=== PATIENT | female | born 1960 ===

== ENCOUNTER → 2016-05-02 | Outpatient (CLI) | payer BC | END | disposition home or self-care (01) | LOC: C.PATHSPEC 11:07 | PROVIDERS: ATTEND Dentist Oral and Maxillofacial Surgery | DX: C05.9 Malignant neoplasm of palate, unspecified (principal) ==

== ENCOUNTER 2025-02-01 06:21 | Observation (INO) ==
--- NOTE | 2025-01-07 15:22 | PAT Medication Instructions ---
Medication Instructions Date of Service January 07, 2025 Home Medications Lactobacillus acidophilus 10 billion cell capsule (Probiotic) 10,000 mmu cells PO DAILY acetaminophen 500 mg capsule 500 mg PO QID PRN Pain alprazolam 0.5 mg tablet (Xanax) 0.5 mg PO BID PRN Anxiety cholecalciferol (vitamin D3) 125 mcg (5,000 unit) tablet (Vitamin D3) 125 mcg PO WK citalopram 40 mg tablet (Celexa) 20 mg PO QAM meclizine 25 mg tablet 25 mg PO DAILY PRN Dizziness nebivolol 20 mg tablet 20 mg PO QAM tirzepatide (weight loss) 15 mg/0.5 mL subcutaneous pen injector 15 mg subcut WK DO NOT take the morning of surgery Lactobacillus acidophilus 10 billion cell capsule (Probiotic) 10,000 mmu cells PO DAILY cholecalciferol (vitamin D3) 125 mcg (5,000 unit) tablet (Vitamin D3) 125 mcg PO WK Take morning of surgery With a small sip of water, OTHERWISE NOTHING TO EAT OR DRINK AFTER MIDNIGHT: acetaminophen 500 mg capsule 500 mg PO QID PRN Pain (if needed) alprazolam 0.5 mg tablet (Xanax) 0.5 mg PO BID PRN Anxiety (if needed) citalopram 40 mg tablet (Celexa) 20 mg PO QAM meclizine 25 mg tablet 25 mg PO DAILY PRN Dizziness (if needed) nebivolol 20 mg tablet 20 mg PO QAM Take evening before surgery acetaminophen 500 mg capsule 500 mg PO QID PRN Pain (if needed) alprazolam 0.5 mg tablet (Xanax) 0.5 mg PO BID PRN Anxiety (if needed) meclizine 25 mg tablet 25 mg PO DAILY PRN Dizziness (if needed) STOP 7 days prior to surgery tirzepatide (weight loss) 15 mg/0.5 mL subcutaneous pen injector 15 mg subcut WK Other Notes If you have any questions please call us at [phone] or [phone] or [phone] or [phone]
--- NOTE | 2025-01-12 14:18 | Anesthesiology Consultation ---
Date of Service January 12, 2025 Assessment & Plan (1) Encounter for pre-operative examination: - tirzepatide instructions: Patient informed at PAT visit to stop 7 days prior to surgery- voiced understanding. - Outpatient joint assessment: Patient is currently scheduled for inpatient pathway. If re-evaluated and patient/surgeon requests outpatient pathway, patient is not recommended candidate for outpatient joint program. Chart Review Chart Review: Acceptable Risk for Surgery and Patient seen in Pre Admission Testing Teaching & Discussion Pre-Anesthesia Teaching/Discussion Notes: Instructed NPO after midnight before surgery, except medications with 15 cc of water. Medication instructions provided according to the [facility] guidelines. History Surgery Operation Date: 02/01/25 13:05 Proposed Procedures p Right Anterior Total Hip Arthroplasty - Bruce Richey DO Height/Weight Height: 4 ft 11 in Weight: 91.4 kg Allergies Allergy/AdvReac Type Severity Reaction Status Date / Time prednisone Allergy Unknown Rash Verified 01/07/25 11:21 Medications Home Medications Medication Instructions Recorded Confirmed Last Taken Lactobacillus acidophilus 10 10,000 mmu cells PO DAILY 01/07/25 01/07/25 Unknown billion cell capsule (Probiotic) acetaminophen 500 mg capsule 500 mg PO QID PRN Pain 01/07/25 01/07/25 Unknown alprazolam 0.5 mg tablet (Xanax) 0.5 mg PO BID PRN Anxiety 01/07/25 01/07/25 Unknown cholecalciferol (vitamin D3) 125 125 mcg PO WK 01/07/25 01/07/25 Unknown mcg (5,000 unit) tablet (Vitamin D3) citalopram 40 mg tablet (Celexa) 20 mg PO QAM 01/07/25 01/07/25 Unknown meclizine 25 mg tablet 25 mg PO DAILY PRN Dizziness 01/07/25 01/07/25 Unknown nebivolol 20 mg tablet 20 mg PO QAM 01/07/25 01/07/25 Unknown tirzepatide (weight loss) 15 15 mg subcut WK 01/07/25 01/07/25 Unknown mg/0.5 mL subcutaneous pen injector Past Medical History Medical History (Updated 01/12/25 @ 14:33 by Solange Francois PA-C) Anxiety Depression GERD (gastroesophageal reflux disease) rare-only if eats and lays down/has spicy food Hip pain, right History of COVID-19 (~2022) denies hospitalization-symptoms resolved Hyperlipemia Hypertension controlled, stable per pt Obesity Patient denies h/o stroke, seizures, heart attack, heart failure, DM, blood clots/DVTs or blood transfusions. Exercise / Class Metabolic Activity III < 4 Walking/Shop/Light housework (denies chest discomfort or shortness of breath with usual activities, not ambulating up one flight of stairs due to hip pain) Past Family History Family History Other Brain tumor Cancer Colon cancer Diabetes Heart disease Uterine cancer Past Surgical History Surgical History H/O removal of cyst Hyoid cyst. History of colonoscopy Hx of oral surgery benign growth removed roof of mouth [place] teeth extracted Past Anesthesia History No Hx of Anesthesia Complications and No Family Hx of Anesthesia Complications History of PONV History of PONV (with remote surgeries) and Hx of Motion Sickness Social History Smoking Status: Never smoker Do You Dip or Chew Tobacco: No Hx Alcohol Use: No Hx Substance Use: No substance use type: does not use Review of Systems Snoring, denies witnessed apneas. Patient denies chest pain, shortness of breath, dyspnea on exertion, fever, chills, cough, wheezing, or palpitations. Physical Exam Vital Signs Vitals BP 109/72 P 74 TEMP 98.5 SP02 97% on RA RESP 18 Physical Patient resting comfortably in chair in no acute distress, alert and oriented, responding appropriately throughout visit Full cervical extension range of motion without pain TMD 3 finger breadths Mallampati Score 2 Dentition: intact, denies chipped or loose teeth, caps/crowns, implants or bridges Lungs: normal respiratory effort. Good air movement, clear throughout to auscultation, no adventitious breath sounds Cardiac: regular rate and rhythm, no murmurs noted Carotid arteries: negative bruit bilat Lab Results Anesthesia Preop Results Results Anesthesia Widget: WBC 5.49 K/ul (4.8-10.8) 01/12/25 Hgb 12.1 g/dl (12.0-16.0) 01/12/25 Hct 36.5 % (37.0-47.0) L 01/12/25 Plt 227 K/uL (130-400) 01/12/25 Na 137 mmol/L (136-145) 01/12/25 K 4.0 mmol/L (3.5-5.1) 01/12/25 Cl 107 mmol/L (98-107) 01/12/25 CO2 23 mmol/L (21-32) 01/12/25 BUN 16 mg/dl (6-23) 01/12/25 Creat 0.81 mg/dl (0.6-1.2) 01/12/25 Glucose Level 82 mg/dl (70-99(Fasting)) 01/12/25 PT 10.4 Seconds (9.0-12.0) 01/12/25 PTT 32 Seconds (21-31) H 01/12/25 INR 1.0 (0.9-1.1) 01/12/25 Blood Type O Positive 01/12/25 Antibody Screen NEGATIVE 01/12/25 Testing Electrocardiogram Date: 01/12/25 NSR, rate 72 bpm Chest X-Ray Date: 01/12/25 No acute findings.
[~2025-02-01 06:21] MED LIST: BUPIVACAINE 0.5 % 5 MG/1 ML PF 10ML VIAL ONE
[2025-02-01] MEDS ORDERED: PROPOFOL IV EMULSION 10 MG/ML 20 ML VIAL IV ONE ×2 (06:45→09:15)
[2025-02-01] MEDS ORDERED: LIDOCAINE 2% 2 ML VIAL/AMP(20MG/ML) INFIL ONE (06:45)
[2025-02-01] MEDS ORDERED: MIDAZOLAM HCL 1 MG/ML 2ML VIAL ONE (06:46)
--- NOTE | 2025-02-01 06:51 | History & Physical Bridge Note ---
Date of Service February 01, 2025 History & Physical Bridge Note I have examined the patient, reviewed the History & Physical and in the interval since the performance of the History & Physical I have noted the following changes of clinical significance: no changes noted
[2025-02-01] MEDS: LR 500ML BOLUS, THEN 15ML/HR IV SCH (06:53)
[2025-02-01] MEDS: GABAPENTIN 600 MG DOSE PO SCH (06:54)
[2025-02-01] MEDS: LR 60ML/HR IV SCH (06:54)
[2025-02-01] MEDS: ACETAMINOPHEN 500 MG TAB PO SCH ×2 (06:55→14:16)
[2025-02-01] MEDS: FAMOTIDINE 20 MG TAB PO SCH (06:55)
[2025-02-01] MEDS: dexAMETHasone**PF** 10 MG/ML VIAL IV SCH (06:57)
[2025-02-01] MEDS ORDERED: ATROPINE SULFATE 0.1 MG/ML 10ML SYR IV PRN (07:32)
[2025-02-01] MEDS ORDERED: ONDANSETRON INJ 2 MG/ML 2 ML VIAL IV PRN ×2 (07:32→10:58)
[2025-02-01] MEDS: TRANEXAMIC ACID 1,000 MG **IV Pre-op IV SCH (07:51)
[2025-02-01] MEDS ORDERED: KETAMINE HCL 10MG/ML SYR ONE (08:13)
[2025-02-01] MEDS: ORTHO JOINT ANESTHETIC ONE (08:40)
[2025-02-01] MEDS: ROPIV 0.5% 246mg, Ketorolac 30mg, EPINEPHrine 0.5mg in NSS INFIL SCH (08:40)
[2025-02-01] MEDS ORDERED: PHENYLEPHRINE 100MCG/ML 5ML SYR ONE (08:53)
--- NOTE | 2025-02-01 09:09 | Operative Report ---
PG Post Operative Report Pre & Post Diagnosis Operation Date: 02/01/25 08:00 Pre-Op Diagnosis: Right Hip Osteoarthritis Post-Op Diagnosis: Right Hip Osteoarthritis I identified the patient and participated in the time-out.: Yes Procedure Operation Date: 02/01/25 08:00 Actual Procedures p Right Anterior Total Hip Arthroplasty, Uncemented(Right) - Bruce Richey DO Surgeon Bruce Richey DO Practice Business Asst Aranza Khan PA-C Estimated Blood Loss 250 Findings Consistent with Post-Op Diagnosis Specimens Right femoral head Description of Procedure Implants used I used a [employer]immer[employer]omet total hip arthroplasty system with a size 1 standard offset Z1 stem, a 48 mm G7 cup with a 25mm screw, an E1 polyethylene liner, a 32 mm ceramic head with a 0 neck. Ericka arrived at the hospital for the above procedure. She was seen in the preoperative holding area and the operative extremity was identified and signed. She was given a spinal anesthetic, a preoperative antibiotic, and TXA. She was then taken back to the operating room and laid on the table in the supine position. She was given basic sedation. The operative leg was secured to a Puristst leg positioner. The hip was then prepped and draped in sterile fashion. A timeout was done and the patient and the operative extremity was properly identified. An anterior approach was used. Dissection was taken down through the fascia and the tensor muscle belly was retracted laterally and the rectus was retracted medially. The circumflex vessels were identified and ligated. The capsule was then incised and tagged for later repair. The femoral neck was then cut and the femoral head was removed. The acetabulum was exposed. Time was spent doing a complete circumferential labral release. Sequential reaming of the acetabulum up to a size 47 reamer was done. Final reamings were done under fluoroscopy to ensure appropriate version. A Biomet 48 mm G7 cup was then impacted into place. A single 25 mm screw was placed. The E1 polyethylene liner was then snapped into place. Surrounding soft tissues were then injected with 100 cc of an orthopedic pain control cocktail. The proximal femur was then exposed. Sequential broaching up to a size 1 broach was done. Off that broach a size 32 head with a 0 neck was trialed. The hip was reduced and fluoroscopic images showed anatomic alignment of the implants in acceptable length. The broach was removed. The final size 1 standard offset Z1 stem was then impacted into place. A ceramic 32 mm head with a 0 neck was then impacted onto the stem and the hip was reduced. Final fluoroscopic images showed anatomic alignment of the hip. The capsule was then closed with #1 Vicryl suture. A dilute betadyne lavage was then done for 3 minutes. The joint was then irrigated with normal saline solution. The fascia was closed with #1 PDS suture. Skin was closed with 2-0 Vicryl, [place] Zipline, and a Silverlon dressing. She was then transferred to a hospital bed and taken to the post anesthesia care unit in stable condition. She tolerated the procedure well. Aranza Khan PA-C, was present for the entire procedure. He was critical for patient positioning, prepping, draping, retraction exposure, wound closure and application of sterile dressing. I attest to the content of the Intraoperative Record and any orders documented therein. Any exceptions are noted below.
--- NOTE | 2025-02-01 10:47 | XRay Report ---
XR hip 1V RT w pelvis CLINICAL HISTORY: IN PACU - Post Surgical COMPARISON: None FINDINGS: Right hip prosthesis shows no hardware complication. There is a small osseous fragment jus t lateral to the right acetabulum. There is expected soft tissue gas. IMPRESSION: Unremarkable postoperative exam. ACT 112: Negative or not required by law. Electronically signed by: Michael Moreno M.D. 02/01/2025 10:46 AM
[2025-02-01] MEDS ORDERED: METOCLOPRAMIDE HCL INJ 5 MG/ML 2 ML VIAL IV PRN (10:58)
[2025-02-01] MEDS ORDERED: diphenhydrAMINE Capsule 25 MG CAP PO PRN (10:58)
[2025-02-01] MEDS ORDERED: MECLIZINE HCL 25 MG TAB PO PRN (10:58)
[2025-02-01] MEDS ORDERED: NALOXONE HCL 0.4 MG/1 ML VIAL/CARP IV PRN (10:58)
[2025-02-01] MEDS ORDERED: MAGNESIUM HYDROXIDE SUSP 30 ML UDC PO PRN (10:58)
--- NOTE | 2025-02-01 10:59 | Fluoroscopy Report ---
FL hip RT 1V CLINICAL HISTORY: RIGHT ANTERIOR HIP COMPARISON STUDY: None FLUOROSCOPY TIME: 13 seconds FLUOROSCOPY IMAGES: 3 EXPOSURE DOSE: 1.7 mGy FINDINGS: Fluoroscopy was provided for right hip prosthesis. IMPRESSION: Intraoperative fluoroscopy. ACT 112: Negative or not required by law. Electronically signed by: Michael Moreno M.D. 02/01/2025 10:58 AM
[2025-02-01] MEDS: SODIUM CHLORIDE 0.9% 1,000 ML IV SCH (11:32)
--- NOTE | 2025-02-01 11:52 | Anesthesiology Progress Note ---
Date of Service February 01, 2025 Anesthesia Post Procedure Vital Signs Vital Signs: Temp Pulse Pulse Resp BP Pulse Ox O2 Del Method 02/01/25 11:45 97.9 F 70 20 143/86 H 97 Room Air 02/01/25 11:15 97.5 F L 74 16 131/86 95 Room Air 02/01/25 10:45 97.7 F 66 16 142/88 H 99 Room Air 02/01/25 10:35 97.7 F 65 17 128/81 98 Room Air 02/01/25 10:25 71 15 135/80 94 Room Air 02/01/25 10:15 62 14 133/84 95 Room Air 02/01/25 10:05 64 14 123/91 95 Room Air 02/01/25 09:55 70 20 131/76 96 Room Air 02/01/25 09:45 78 16 105/75 95 Room Air 02/01/25 09:38 97.2 F L 75 16 110/73 98 Oxymask 02/01/25 06:41 98.1 F 83 18 147/73 H 97 Room Air O2 Flow Rate 02/01/25 11:45 02/01/25 11:15 02/01/25 10:45 02/01/25 10:35 02/01/25 10:25 02/01/25 10:15 02/01/25 10:05 02/01/25 09:55 02/01/25 09:45 02/01/25 09:38 6 02/01/25 06:41 Transfer of Care Handoff Completed per policy Notes Mental Status: alert / awake / arousable and participated in evaluation Patient Amnestic to Procedure: Yes Nausea / Vomiting: adequately controlled Pain: adequately controlled Airway Patency, RR, SpO2: stable & adequate BP & HR: stable & adequate Hydration State: stable & adequate Neuraxial Anesthesia: was administered and sensory block is resolving Anesthetic Complications: no major complications apparent and Pt Satisfied with anesthetic care
[2025-02-01] MEDS: KETOROLAC TROMETHAMINE 15 MG/ML VIAL IV SCH (12:45)
[2025-02-01] MEDS: ASPIRIN 81 MG ECTAB PO SCH (20:24)
[2025-02-01] MEDS: DOCUSATE SODIUM 100 MG CAP PO SCH (20:25)
[2025-02-01] MEDS: SENNA 8.6 MG TAB PO SCH (20:25)
[2025-02-01 22:42] VITALS: RESP 16
[2025-02-02 03:14] VITALS: TEMP 98.4; O2SAT 97
[2025-02-02 07:55] VITALS: BP 131/81; PULSE 87
--- NOTE | 2025-02-02 08:45 | Orthopedic Progress Note ---
Date of Service February 02, 2025 Assessment & Plan (1) S/P total right hip arthroplasty: * Continue Current Treatment * Disposition: home * Daily treatment: Physical Therapy/ Occupational Therapy per protocol * Weight bearing status: WBAT, no precautions * Continue to monitor for ABLA * Pain control * DVT prophylaxis, ASA * Office/hospital f/u 2 weeks for progress check and staple/suture removal * Plan for discharge today pending PT/OT clearance Subjective .Active Problems: S/p right SINAN POD 1 64 y/o female s/p right SINAN. Doing well overall, pain managed and improved function. Denies fever/chills, chest pain/SOB, nausea/vomiting. Otherwise no com plaints. Review of Systems All systems reviewed & are unremarkable except as noted in HPI & below. Physical Exam . * General: Alert and oriented, no acute distress * Constitutional: well-developed, well-nourished. * Respiratory: Normal respiratory effort, no distress * Gastrointestinal: No tenderness to palpation, no rigidity or guarding. * Skin: No rash or lesion. * Neurologic: Grossly normal * Musculoskeletal: Right hip surgical dressing CDI, not removed for exam. Otherwise no obvious deformity or overlying skin changes. Diffuse TTP proximal thigh and hip region. Otherwise no specific tenderness of distal thigh, lower leg, foot/ankle. AROM hip flexion intact. AROM foot/ankle intact. Sensation intact plantar/dorsal foot. Brisk capillary refill. Results & Data Results & Data Laboratory Results . Diagnostic Findings . Hip X-Ray 02/01/25 08:00 FL hip RT 1V CLINICAL HISTORY: RIGHT ANTERIOR HIP COMPARISON STUDY: None FLUOROSCOPY TIME: 13 seconds FLUOROSCOPY IMAGES: 3 EXPOSURE DOSE: 1.7 mGy FINDINGS: Fluoroscopy was provided for right hip prosthesis. IMPRESSION: Intraoperative fluoroscopy. ACT 112: Negative or not required by law. Electronically signed by: Michael Moreno M.D. 02/01/2025 10:58 AM Hip/Pelvis X-Ray 02/01/25 09:56 XR hip 1V RT w pelvis CLINICAL HISTORY: IN PACU - Post Surgical COMPARISON: None FINDINGS: Right hip prosthesis shows no hardware complication. There is a small osseous fragment just lateral to the right acetabulum. There is expected soft tissue gas. IMPRESSION: Unremarkable postoperative exam. ACT 112: Negative or not required by law. Electronically signed by: Michael Moreno M.D. 02/01/2025 10:46 AM PG Care Time/CCT Total # of Minutes Spent Total Time Spent with Patient: Total time spent is greater than 50% in coordination of care (as documented) at patient's floor/unit and/or counseling patient: Coding Level of Care Code 81910 Post Operative Follow-Up Diagnoses S/P total right hip arthroplasty Z96.641
[2025-02-02] MEDS ORDERED: NEBIVOLOL 10 MG PO SCH (09:00)
[2025-02-02] MEDS: ADVANCED PROBIOTIC 625 MG CAPSULE PO SCH (09:17)
[2025-02-02] MEDS: NEBIVOLOL 10 MG PO SCH (09:18)
[2025-02-02] MEDS: CITALOPRAM 20 MG TAB PO SCH (09:18)
[2025-02-02] MEDS: MULTIVITAMIN TAB PO SCH (09:19)
== END 2025-02-02 11:24 | disposition home or self-care (01) ==
LOC: 3E 06:21 → ASU 06:21